=== PATIENT | female | born 1980 | race Caucasian/White ===

== ENCOUNTER 2018-11-04 02:24 | Observation (INO) ==
[2018-11-04] MEDS ORDERED: Famotidine 20 MG/2 ML VIAL IVP ONE (02:55)
[2018-11-04] MEDS ORDERED: *HR* FentaNYL (PF) 100 MCG/2 ML VIAL IVP ONE ×2 (02:55→04:50)
[2018-11-04] MEDS ORDERED: Ondansetron 4 MG/2 ML VIAL IVP ONE (02:55)
--- NOTE | 2018-11-04 02:59 | Emergency Department Note ---
Disposition Clinical Impression: Biliary colic Ovarian cyst Qualifiers: Laterality: right Qualified Code(s): N83.201 - Unspecified ovarian cyst, right side Abdominal pain Qualifiers: Abdominal location: generalized Qualified Code(s): R10.84 - Generalized abdominal pain Disposition: Admitted As Inpatient Condition: Fair Forms: ED Satisfaction Letter, Work/School Release Time of Disposition: 04:20 Abdominal Pain HPI - General Chief Complaint: ED Abdominal Pain Stated Complaint: "Severe Abd Pain/Nausea/Vomiting" Time Seen by Provider: 11/04/18 02:50 Source: patient, family Mode of arrival: ambulatory Limitations: no limitations Nursing Notes Reviewed: Yes Vital Signs Reviewed: Yes - History of Present Illness HPI Narrative: Centrally located abdominal pain since this evening. Pain radiates to her upper abdomen and to her back as well as her chest. Associated nausea and vomiting. She states she felt constipated over the past week and stool softeners were given (generic colace) without improvement. Patient reports having no appetite but she ate tortilla soup this evening. No other acute GI/ symptoms reported Pt Subjective Complaint: abdominal pain Onset (ago): hour(s) Consistency: constant Location: periumbilical Pain Severity: severe Pain Scale: 10 Quality: aching Radiation: epigastric, back, chest Associated symptoms: Reports: nausea, vomiting, constipation Treatments prior to arrival: OTC medications - Related Data Home Medications Medication Instructions Recorded Confirmed Sprintec 28 Day Tablet 10/31/15 Symbicort 80/4.5 03/02/17 Albuterol Inhaler 02/20/18 Zoloft 02/20/18 Previous Rx's Medication Instructions Recorded Ipratropium/Albuterol Neb [Duoneb] 3 ml IH Q6H PRN #30 vial.neb 02/20/18 predniSONE [PredniSONE] 20 mg PO DAILY 12 Days #5 tablet 05/02/18 PredniSONE [Deltasone] 20 mg PO DAILY #12 tablet 09/04/18 Tizanidine HCl 4 mg PO TID #15 tablet 09/04/18 predniSONE [PredniSONE] 0 mg PO DAILY #15 tablet 10/11/18 Allergies Allergy/AdvReac Type Severity Reaction Status Date / Time No Known Allergies Allergy Verified 10/11/18 20:53 All systems ED: reviewed and negative except as stated. Constitutional: Reports: as per HPI Eyes: Reports: as per HPI ENT ED: Reports: epistaxis Cardiovascular: Reports: chest pain Respiratory: Reports: as per HPI Gastrointestinal: Reports: abdominal pain, nausea, vomiting, constipation Genitourinary: Reports: as per HPI Musculoskeletal: Reports: back pain Integumentary: Reports: as per HPI Neurological: Reports: as per HPI Psychiatric: Reports: as per HPI Endocrine: Reports: as per HPI Hematological/Lymphatic: Reports: as per HPI Allergic/Immunologic: Reports: as per HPI Abdominal Pain PMH - Past Medical History Medical history: Reports: asthma Female Surgical History: Reports: Tonsillectomy Psychiatric history: Reports: no psych history - Social History Smoking status: Never smoker Alcohol use: Reports: none Drug use: Reports: none Physical Exam Uncomfortable appearing - General Limitations: no limitations General appearance: alert, in no apparent distress - Head Head exam: atraumatic - Eye Eye exam: Present: normal appearance - ENT ENT exam: normal exam - Neck Neck exam: Present: normal inspection, full ROM - Chest Chest inspection: Present: normal inspection, symmetric chest wall rise - Respiratory Respiratory exam: Present: normal lung sounds bilaterally - Cardiovascular Cardiovascular exam: Present: regular rate, normal rhythm, normal heart sounds - Abdominal Exam Abdominal exam: Present: soft, Non-Tender, normal bowel sounds. Absent: d istention, guarding, rebound Abdominal tenderness: Absent: RUQ, RLQ - Rectal Exam Rectal exam: Present: deferred - Extremities Exam Extremities exam: Present: normal inspection - Neurological Exam Neurological exam: Present: alert, oriented X3, CN II-XII intact - Psychiatric Psychiatric exam: Present: normal affect, normal mood - Skin Skin exam: Present: warm, dry, other (Splotchy erythematous rash to cheeks) Course Course Narrative: Patient presents with nausea and vomiting as well as centrally located abdominal pain. Her abdominal exam is benign. She does not have an acute surgical abdomen at the time of arrival. IV pain medications and antiemetics offered. I we will obtain labs, urinalysis, urine and obtain a CT scan abd and pelvis Vital Signs Temperature 98.3 F 11/04/18 02:34 Pulse Rate 89 11/04/18 02:34 Respiratory Rate 16 11/04/18 02:34 Blood Pressure 114/64 11/04/18 02:34 O2 Sat by Pulse Oximetry 98 11/04/18 02:34 Temperature 98.3 F 11/04/18 02:34 Pulse Rate 89 11/04/18 02:34 Respiratory Rate 16 11/04/18 02:34 Blood Pressure 114/64 11/04/18 02:34 O2 Sat by Pulse Oximetry 98 11/04/18 02:34 Oxygen Delivery Oxygen Delivery Room Air Abdominal Pain - Medical Records Medical records reviewed: Yes I reviewed the patient's medical records. - Lab Data Lab results reviewed: Yes I reviewed the patient's lab results. Result diagrams: 11/04/18 02:55 11/04/18 02:55 Lab Results 11/04/18 11/04/18 11/04/18 Range/Units 02:55 02:55 03:11 WBC 8.1 (4.3-11.1) K/mcL RBC 4.51 (3.82-4.97) M/mcL Hgb 13.4 (11.5-15.4) g/dL Hct 38.6 (35.3-44.9) % MCV 85.6 (83.0-100.0) fL MCH 29.7 (28.0-33.3) pg MCHC 34.7 (31.6-35.5) g/dL RDW 12.3 (11.5-14.5) % Plt Count 210 (140-400) K/mcL MPV 9.1 L (9.4-12.4) fL Immature Gran % 0.4 (0-4) % Seg Neutrophils % 78.0 % Lymphocytes % 13.8 % Monocytes % 7.2 % Eosinophils % 0.4 % Basophils % 0.2 % Neutrophils # 6.3 (1.6-8.9) K/mcL Lymphocytes # 1.1 (0.6-4.6) K/mcL Monocytes # 0.6 (0.0-1.3) K/mcL Eosinophils # 0.0 (0.0-0.6) K/mcL Basophils # 0.0 (0.0-0.2) K/mcL Sodium 136 (136-145) mEq/L Potassium 3.6 (3.5-5.1) mEq/L Chloride 103 (98-107) mEq/L Carbon Dioxide 23 (23-29) mEq/L BUN 9 (6-20) mg/dL Creatinine 0.53 L (0.60-1.20) mg/dL Est GFR ( Amer) > 60 (> 60) Est GFR (Non-Af Amer) > 60 (> 60) BUN/Creatinine Ratio 17 (6-26) Glucose 132 H (70-105) mg/dL Calculated Osmolality 283 (280-300) Calcium 9.4 (8.6-10.3) mg/dL Total Bilirubin 0.7 (0.3-1.0) mg/dL AST 15 (13-39) Units/L ALT 13 (7-52) Units/L Alkaline Phosphatase 47 (34-104) Units/L Serum Total Protein 6.6 (6.4-8.9) g/dL Albumin 4.0 (3.5-5.7) g/dL Globulin 2.6 (2.4-3.5) g/dL Albumin/Globulin Ratio 1.5 (1.1-2.2) Amylase 32 (29-103) Units/L Urine Color Yellow (Yellow) Urine Clarity Clear (Clear) Urine pH 7.5 (5.0-8.0) pH Units Ur Specific [place] 1.021 (1.010-1.025) Urine Protein Trace (Neg-Trace) mg/dL Urine Glucose (UA) Normal (Normal) mg/dL Urine Ketones 80 H (Negative) mg/dL Urine Blood Negative (Negative) Urine Nitrite Negative (Negative) Urine Bilirubin Negative (Negative) Urine Urobilinogen Normal (Normal) mg/dL Ur Leukocyte Esterase Moderate H (Negative) Urine Microscopic RBC 5-15 H (0-3) per hpf Urine Microscopic WBC 5-15 H (0-3) per hpf Ur Squamous Epith Cells Many H (None-Few) per lpf Urine Bacteria None Seen (None-Few) per hpf Hyaline Casts None Seen (None-Few) per lpf Urine Test (Negative) 11/04/18 Range/Units 03:11 WBC (4.3-11.1) K/mcL RBC (3.82-4.97) M/mcL Hgb (11.5-15.4) g/dL Hct (35.3-44.9) % MCV (83.0-100.0) fL MCH (28.0-33.3) pg MCHC (31.6-35.5) g/dL RDW (11.5-14.5) % Plt Count (140-400) K/mcL MPV (9.4-12.4) fL Immature Gran % (0-4) % Seg Neutrophils % % Lymphocytes % % Monocytes % % Eosinophils % % Basophils % % Neutrophils # (1.6-8.9) K/mcL Lymphocytes # (0.6-4.6) K/mcL Monocytes # (0.0-1.3) K/mcL Eosinophils # (0.0-0.6) K/mcL Basophils # (0.0-0.2) K/mcL Sodium (136-145) mEq/L Potassium (3.5-5.1) mEq/L Chloride (98-107) mEq/L Carbon Dioxide (23-29) mEq/L BUN (6-20) mg/dL Creatinine (0.60-1.20) mg/dL Est GFR ( Amer) (> 60) Est GFR (Non-Af Amer) (> 60) BUN/Creatinine Ratio (6-26) Glucose (70-105) mg/dL Calculated Osmolality (280-300) Calcium (8.6-10.3) mg/dL Total Bilirubin (0.3-1.0) mg/dL AST (13-39) Units/L ALT (7-52) Units/L Alkaline Phosphatase (34-104) Units/L Serum Total Protein (6.4-8.9) g/dL Albumin (3.5-5.7) g/dL Globulin (2.4-3.5) g/dL Albumin/Globulin Ratio (1.1-2.2) Amylase (29-103) Units/L Urine Color (Yellow) Urine Clarity (Clear) Urine pH (5.0-8.0) pH Units Ur Specific [place] (1.010-1.025) Urine Protein (Neg-Trace) mg/dL Urine Glucose (UA) (Normal) mg/dL Urine Ketones (Negative) mg/dL Urine Blood (Negative) Urine Nitrite (Negative) Urine Bilirubin (Negative) Urine Urobilinogen (Normal) mg/dL Ur Leukocyte Esterase (Negative) Urine Microscopic RBC (0-3) per hpf Urine Microscopic WBC (0-3) per hpf Ur Squamous Epith Cells (None-Few) per lpf Urine Bacteria (None-Few) per hpf Hyaline Casts (None-Few) per lpf Urine Test Negative (Negative) - Radiology Data Radiology results reviewed: Yes I reviewed the patient's radiology results.
[2018-11-04 03:27] LABS: Basophils % 0.2 %; Eosinophils % 0.4 %; Hematocrit 38.6 % (35.3-44.9); Hemoglobin 13.4 g/dL (11.5-15.4); Immature Granulocytes % 0.4 % (0-4); Lymphocytes # 1.1 K/mcL (0.6-4.6); Lymphocytes % 13.8 %; Mean Corpuscular HGB Conc 34.7 g/dL (31.6-35.5); Mean Corpuscular Hemoglobin 29.7 pg (28.0-33.3); Mean Corpuscular Volume 85.6 fL (83.0-100.0); Mean Platelet Volume 9.1 fL (9.4-12.4); Monocytes # 0.6 K/mcL (0.0-1.3); Monocytes % 7.2 %; Neutrophils # 6.3 K/mcL (1.6-8.9); Platelet Count 210 K/mcL (140-400); Red Blood Count 4.51 M/mcL (3.82-4.97); Red Cell Distribution Width 12.3 % (11.5-14.5)
[2018-11-04 03:31] LABS: Bilirubin,Urine Negative (Negative); Blood,Urine Negative (Negative); Clarity,Urine Clear (Clear); Color,Urine Yellow (Yellow); Glucose,Urine (UA) Normal (Normal); Ketones,Urine 80 mg/dL (Negative); Leukocyte Esterase,Urine Moderate (Negative); Nitrite,Urine Negative (Negative); PH,Urine 7.5 pH Units (5.0-8.0); Protein,Urine Trace mg/dL (Neg-Trace); Specific Gravity,Urine 1.021 (1.010-1.025); Urobilinogen,Urine Normal (Normal)
[2018-11-04 03:33] LABS: Bacteria,Urine None Seen per hpf (None-Few); Hyaline Casts,Urine None Seen per lpf (None-Few); Squamous Epithelial Cell,Urine Many per lpf (None-Few)
[2018-11-04] MEDS ORDERED: 0.9 % Sodium Chloride 1,000 ML IVC ONE (03:35)
[2018-11-04 03:47] LABS: Alanine Aminotransferase 13 Units/L (7-52); Albumin/Globulin Ratio 1.5 (1.1-2.2); Alkaline Phosphatase 47 Units/L (34-104); Amylase 32 Units/L (29-103); Aspartate Amino Transferase 15 Units/L (13-39); BUN/Creatinine Ratio 17 (6-26); Bilirubin,Total 0.7 mg/dL (0.3-1.0); Blood Urea Nitrogen 9 mg/dL (6-20); Calcium 9.4 mg/dL (8.6-10.3); Carbon Dioxide 23 mEq/L (23-29); Chloride 103 mEq/L (98-107); Globulin 2.6 g/dL (2.4-3.5); Glucose 132 mg/dL (70-105); Osmolality,Calculated 283 (280-300); Potassium 3.6 mEq/L (3.5-5.1); Sodium 136 mEq/L (136-145); Total Protein 6.6 g/dL (6.4-8.9); eGFR For Non-African Americans > 60 (> 60)
[2018-11-04] MEDS ORDERED: Piperacillin/Tazobactam 3.375 GM in 0.9 % Sodium Chloride Mini Bag 100 ML IVPB ONE (04:20)
[2018-11-04] MEDS: 0.9 % Sodium Chloride 1,000 ML IVC SCH (04:40)
[2018-11-04] MEDS ORDERED: OXYCODONE Oral CONC 10 MG/0.5 ML ORAL.SYG SL PRN ×2 (05:53→13:37)
[2018-11-04] MEDS ORDERED: Ondansetron ODT 4 MG TAB.RAPDIS SL PRN ×2 (05:54→18:59)
--- NOTE | 2018-11-04 08:26 | Anesthesia Evaluation PreOp ---
Date of Encounter: 11/04/18 Time of Encounter: 16:11 - Past History Planned Operation: ROBOTIC LAP CHOLECYSTECTOMY Cardiac History: Denies any Significant Hx Pulmonary History: Asthma [employer] History: Other (ANXIETY, DEPRESSION) Other Medical History: Denies Any Significant HX Anesthesia History: No Prior Anesthetic Complications, Past Anesthesia : No Test: Negative Alcohol Use: none Drug use: none Medications and Allergies Ascorbic Acid [Vitamin C] 1,000 mg PO DAILY 11/04/18 [History] Budesonide/Formoterol 80/4.5 [Symbicort 80/4.5] 1 puff IH BID 11/04/18 [History] Multivit-Min/Iron/Folic Acid/K [Adults Multivitamin Caplet] 1 each PO DAILY 11/04/18 [History] Norgestimate-Ethinyl Estradiol [Sprintec 28 Day Tablet] 1 each PO DAILY 11/04/18 [History] Sertraline [Zoloft] 50 mg PO DAILY 11/04/18 [History] Vitamin B Complex [B Complex] 1 each PO DAILY 11/04/18 [History] Allergy/AdvReac Type Severity Reaction Status Date / Time No Known Allergies Allergy Verified 10/11/18 20:53 - Meds/Allergy Pre-op Review Medications Reviewed: Yes (ZOSYN [id number]) Allergies Reviewed: No Anesthesia Results - Labs 11/04/18 02:55 11/04/18 02:55 Laboratory Tests 11/04/18 11/04/18 02:55 03:11 Calcium 9.4 Total Bilirubin 0.7 AST 15 ALT 13 Alkaline Phosphatase 47 Serum Total Protein 6.6 Albumin 4.0 Amylase 32 Urine Test Negative Anesthesia Exam O2 Sat Height 1.68 m Weight 61.235 kg O2 Sat by Pulse Oximetry 100 O2 Sat by Pulse Oximetry 99 O2 Sat by Pulse Oximetry 98 Vital Signs/O2 Sat/Glucose, Most Recent Temp Pulse Resp BP Pulse Ox 98.5 F 72 15 126/75 100 11/04/18 05:18 11/04/18 05:18 11/04/18 05:18 11/04/18 05:18 11/04/18 05:18 NPO (# of Hours): >8 - HEENT Mallampati: I Teeth: Normal Oral Opening: Greater than 3 - Cardiac Rhythm: Regular - Pulmonary Breath Sounds: bilateral Clear Respiratory Effort: Symmetrical Anesthesia Assess/Plan ASA Score: 2 Anesthetic Plan: General Monitoring Plan: Standard Monitors Recovery Plan: PACU
[2018-11-04] MEDS ORDERED: Piperacillin/Tazobactam 3.375 GM in 0.9 % Sodium Chloride Mini Bag 100 ML IVPB SCH (12:00)
--- NOTE | 2018-11-04 13:48 | General Surg History&Physical ---
Date of Encounter: 11/04/18 Time of Encounter: 13:46 Assessment and Plan (1) Biliary colic Current Visit: Yes Status: Acute 37F with biliary colic; NPO IVF abx plan for OR today The assessment and plan as outlined above was discussed with the patient and/or family members who expressed understanding and agreement. All questions were answered. History of Present Illness Chief complaint: abdominal pain HPI: Ms. Franco is a 37 year old female otherwise healthy who presents with one day history of worsening RUQ that was precipated after eating tortilla soup. The patient does not report a pain similar to this in the past. It is associated with nausea, vomiting, fevers, and chills. The pain does radiate to her back/shoulder. No identifiable alleviating or exacerbating factors. A CT scan was obtained which was evaluated by me in combination with radiology reads which showed pericholecystic fluid and gallstones. Past Med Surg Social Fam HX - Past Medical History Medical history: asthma Psychiatric history: no psych history - Past Surgical History Surgical History: no surgical history Additional surgical history: tonsillectomy - Social History Smoking Status: Never smoker Smokeless Tobacco Status: No Alcohol use: none Drug use: none - Family History Grandmother Hx Family Cardiac Disorders: Yes (Stroke) Medications and Allergies Ascorbic Acid [Vitamin C] 1,000 mg PO DAILY 11/04/18 [History] Budesonide/Formoterol 80/4.5 [Symbicort 80/4.5] 1 puff IH BID 11/04/18 [History] Multivit-Min/Iron/Folic Acid/K [Adults Multivitamin Caplet] 1 each PO DAILY 11/04/18 [History] Norgestimate-Ethinyl Estradiol [Sprintec 28 Day Tablet] 1 each PO DAILY 11/04/18 [History] Sertraline [Zoloft] 50 mg PO DAILY 11/04/18 [History] Vitamin B Complex [B Complex] 1 each PO DAILY 11/04/18 [History] Allergy/AdvReac Type Severity Reaction Status Date / Time No Known Allergies Allergy Verified 10/11/18 20:53 Review of Systems All systems PM: 12 point ROS negative besides HPI findings General Surgery Exam Initial Vital Signs Temp Pulse Resp BP Pulse Ox 98.3 F 89 16 114/64 98 11/04/18 02:34 11/04/18 02:34 11/04/18 02:34 11/04/18 02:34 11/04/18 02:34 - General physical appearance no distress - Eyes other (no scleral icterus), normal ocular movement - ENT normocephalic - Neck trachea midline, no lymphadectomy - Respiratory normal expansion, normal respiratory effort - Cardiovascular Cardiovascular exam: Present: RRR - Abdomen Abdomen general surgery: Present: soft, tender Abdominal Tenderness: Present: RUQ - Integumentary Integumentary general surgery: Present: warm and dry - Neurologic Present: CN 2-12 grossly intact - Musculoskeletal Present: normal posture - Psychiatric Psychiatric general surgery: Present: A&Ox3 Results - Labs 11/04/18 02:55 11/04/18 02:55 Abnormal lab results MPV 9.1 fL (9.4-12.4) L 11/04/18 02:55 Creatinine 0.53 mg/dL (0.60-1.20) L 11/04/18 02:55 Glucose 132 mg/dL (70-105) H 11/04/18 02:55 Urine Ketones 80 mg/dL (Negative) H 11/04/18 03:11 Ur Leukocyte Esterase Moderate (Negative) H 11/04/18 03:11 Urine Microscopic RBC 5-15 per hpf (0-3) H 11/04/18 03:11 Urine Microscopic WBC 5-15 per hpf (0-3) H 11/04/18 03:11 Ur Squamous Epith Cells Many per lpf (None-Few) H 11/04/18 03:11 Diabetes panel 11/04/18 Range/Units 02:55 Sodium 136 (136-145) mEq/L Potassium 3.6 (3.5-5.1) mEq/L Chloride 103 (98-107) mEq/L Carbon Dioxide 23 (23-29) mEq/L BUN 9 (6-20) mg/dL Creatinine 0.53 L (0.60-1.20) mg/dL Glucose 132 H (70-105) mg/dL Calcium 9.4 (8.6-10.3) mg/dL AST 15 (13-39) Units/L ALT 13 (7-52) Units/L Alkaline Phosphatase 47 (34-104) Units/L Albumin 4.0 (3.5-5.7) g/dL Calcium panel 11/04/18 Range/Units 02:55 Calcium 9.4 (8.6-10.3) mg/dL Albumin 4.0 (3.5-5.7) g/dL Pituitary panel 11/04/18 Range/Units 02:55 Sodium 136 (136-145) mEq/L Potassium 3.6 (3.5-5.1) mEq/L Chloride 103 (98-107) mEq/L Carbon Dioxide 23 (23-29) mEq/L BUN 9 (6-20) mg/dL Creatinine 0.53 L (0.60-1.20) mg/dL Glucose 132 H (70-105) mg/dL Calcium 9.4 (8.6-10.3) mg/dL Adrenal panel 11/04/18 Range/Units 02:55 Sodium 136 (136-145) mEq/L Potassium 3.6 (3.5-5.1) mEq/L Chloride 103 (98-107) mEq/L Carbon Dioxide 23 (23-29) mEq/L BUN 9 (6-20) mg/dL Creatinine 0.53 L (0.60-1.20) mg/dL Glucose 132 H (70-105) mg/dL Calcium 9.4 (8.6-10.3) mg/dL Total Bilirubin 0.7 (0.3-1.0) mg/dL AST 15 (13-39) Units/L ALT 13 (7-52) Units/L Alkaline Phosphatase 47 (34-104) Units/L Albumin 4.0 (3.5-5.7) g/dL All other labs normal. - Imaging US - abdomen: report reviewed, image reviewed
[2018-11-04] MEDS ORDERED: *HR* FentaNYL (PF) 100 MCG/2 ML VIAL ONE (15:21)
[2018-11-04] MEDS ORDERED: *HR* Propofol 200 MG/20 ML VIAL IVP ONE (15:22)
[2018-11-04] MEDS ORDERED: *HR* Succinylcholine 200 MG/10 ML VIAL IVP ONE (15:22)
[2018-11-04] MEDS ORDERED: *HR* Rocuronium Bromide 50 MG/5 ML VIAL ONE (15:22)
[2018-11-04] MEDS ORDERED: Ondansetron 4 MG/2 ML VIAL ONE (15:22)
[2018-11-04] MEDS ORDERED: Lidocaine -MPF 2% 2 ML VIAL ONE (15:22)
[2018-11-04] MEDS ORDERED: Dexamethasone 4 MG/ML VIAL ONE (15:22)
[2018-11-04] MEDS ORDERED: *HR* PHENYLEPHRINE 1,000 MCG/10 ML SYRINGE IVP ONE (15:24)
[2018-11-04] MEDS ORDERED: Ringers Solution, Lactated 1,000 ML IVC SCH (15:55)
[2018-11-04] MEDS ORDERED: Isovue-300 50 ML VIAL ONE (16:18)
[2018-11-04] MEDS ORDERED: *HR* Morphine 10 MG/ML VIAL ONE (16:38)
[2018-11-04] MEDS ORDERED: Acetaminophen IV 1,000 MG/100 ML INFUS..BTL IVPB ONE (17:07)
[2018-11-04] MEDS ORDERED: *HR* Promethazine 25 MG/ML VIAL IVP PRN (17:07)
[2018-11-04] MEDS ORDERED: *HR* Meperidine 25 MG/ML SYRINGE IVP PRN (17:07)
[2018-11-04] MEDS ORDERED: Dexamethasone 4 MG/ML VIAL IVP ONE (17:07)
[2018-11-04] MEDS ORDERED: Albuterol 2.5 MG/3 ML NEBULIZER IH ONE (17:07)
[2018-11-04] MEDS ORDERED: *HR* OxyCODONE Immed Rel 5 MG TABLET PO PRN (17:07)
[2018-11-04] MEDS ORDERED: *HR* HYDROmorphone (PF) 1 MG/ML SYRINGE IVP PRN (17:07)
[2018-11-04] MEDS ORDERED: Ketorolac 30 MG/ML VIAL ONE (17:32)
--- NOTE | 2018-11-04 18:02 | Operative Note ---
Date of procedure: 11/04/18 Pre-op diagnosis: symptomatic cholelithiasis Post-op diagnosis: same (acute cholecystitis) Procedure: robotic cholecystectomy with intraoperative cholangiogram Implants: none Complications: none Anesthesia: GETA Local Anesthetics: 0.5% Sensorcaine HCL SubQ (cc) Surgeon: Vito Gleason Was there an grants and contracts assistant present: Yes Machine Cloth Examiner: Maria Del Rosario Sotelo Estimated blood loss (cc): 10 Specimen: gallbladder and contents Condition: stable Disposition: PACU Procedure in Detail: The patient was brought into the operating room suite and was placed in the supine position. Mechanical DVT prophylaxis was applied. A time-in was conducted. The patient underwent smooth induction of anesthesia. Preoperative antibiotics were given. The patient was prepped and draped in the usual fashion. A time-out was held identifying the correct patient, pathology, and procedure. Everyone was in agreement and we began the procedure. Incision to Dissection I started by creating a 12mm supraumbilical incision. Via open Simeon technique I did enter into the abdomen. I inserted the 12mm trocar followed by the 30 degree camera, ensured that I did not cause intraabdominal injury upon entry, and quickly identified the gallbladder. It was obviously inflammed. I created a 5mm incisions one handbreadth to the left and right of the umbilical incision and an grants and contracts assistant port along the R anterior axillary line. I then docked the robot in the usual fashion. Using laparoscopic graspers I managed to elevate the gallbladder above the liver. At the Console I grasp the edge of the gallbladder to retract laterally. Prior to doing so I had to decompress the gallbladder. There was immediate expulsion of bile. I then used the [place] instrument as well as the hook-electrocautery, I dissected out the cystic duct and the cystic artery. I excised the posterior tissue to visualize the liver. I was able to clearly visualize the critical view of safety. I then performed a transcystic cholangiogram using the Lira instrument. There was flow into the duodenum, clear visualization of the common bile duct and the proximal ductal system after putting the patient in trendelenberg. I then concluded this portion of the procedure and went back to the console. Critical view of Safety to Excison of the gallbladder I then clipped both structures using plastic clips, two on the stay side, one on the specimen side. Using robotic scissors, I cut between the clip on the specimen side and the first clip on the stay side. Then using tension and counter-tension, I used the electrocautery to excise the gallbladder off of the liver bed. Before complete excision, I evaluated the liver bed to ensure there 1.) there was no bleeding, 2. No excessive bile leakage, and 3.) to evaluate my clips. There was no bleeding, bile leakage, and the clips were all the way across both duct and artery. Removal of gallbladder to Closure After undocking the robot, I inserted the endocatch bag into the umbilical port. I placed the specimen into the bag and retrieved it through the umbilical port. i then irrgiated the liver bed and above the liver before suctioning both irrigation fluid and air. I removed the 5mm ports, turned off the insufllation, then removed the 12mm umbilical port. I then close the umbilical fascia a vicryl suture in a figure of 8 fashion. All incisions were closed with interrupted 4-0 monocryl and sealed with dermabond. The patient tolerated the procedure well and went back to PACU in stable condition.
--- NOTE | 2018-11-04 18:49 | Anesthesia Evaluation Post Op ---
Date of Encounter: 11/04/18 Time of Encounter: 18:41 - Discharge PostOp Status: Transfer Patient to floor (Patient's vital signs have been reviewed. Patient is stable postoperatively and has adequately recovered from anesthesia. Patient is determined to have stable airway patency and respiratory function including respiratory rate and oxygen saturation. Patient has a stable heart rate, blood pressure and adequate hydration. Patients mental status is acceptable. Patients temperature is appropriate. Pain and nausea are adequately controlled.)
[2018-11-04] MEDS ORDERED: 0.9 % Sodium Chloride 1,000 ML IVC SCH (18:59)
[2018-11-04] MEDS: Piperacillin/Tazobactam 3.375 GM in 0.9 % Sodium Chloride Mini Bag 100 ML IVPB SCH (19:53)
[2018-11-05] MEDS: OXYCODONE Oral CONC 10 MG/0.5 ML ORAL.SYG SL PRN ×2 (00:14→12:02)
[2018-11-05] MEDS: Piperacillin/Tazobactam 3.375 GM in 0.9 % Sodium Chloride Mini Bag 100 ML IVPB SCH ×2 (02:54→12:02)
[2018-11-05] MEDS: 0.9 % Sodium Chloride 1,000 ML IVC SCH (10:43)
[2018-11-05 11:54] VITALS: BP 110/71
--- NOTE | 2018-11-05 12:52 | Discharge Summary ---
Orders not resulted at time of discharge: Pending orders 11/04/18 17:54 Surgical Pathology [PTH] Routine Date of Encounter: 11/05/18 Time of Encounter: 12:52 - Discharge Diagnosis (1) Acute cholecystitis due to biliary calculus Priority: Primary Status: Acute Comments: 37F POD #1 s/p robotic cholecystectomy with IOC; currently meets discharge criteria (tolerating diet, voiding on her own, pain controlled) d/c abx d/c IVF reg diet okay for discharge today General Surgery Exam Initial Vital Signs Temp Pulse Resp BP Pulse Ox 98.3 F 89 16 114/64 98 11/04/18 02:34 11/04/18 02:34 11/04/18 02:34 11/04/18 02:34 11/04/18 02:34 - General physical appearance no distress - Eyes other (no scleral icterus), normal ocular movement - ENT normocephalic - Neck trachea midline, no lymphadectomy - Respiratory normal expansion, normal respiratory effort - Cardiovascular Cardiovascular exam: Present: RRR - Abdomen Abdomen general surgery: Present: tender (appropriately tender along incision) - Incision Incision: Present: clean and dry, intact - Integumentary Integumentary general surgery: Present: warm and dry, no abnormal pigmentation - Neurologic Present: CN 2-12 grossly intact - Musculoskeletal Present: normal posture - Psychiatric Psychiatric general surgery: Present: A&Ox3 - Hospital Course Hospital course: Ms. Franco is a 37 year old female - Time Spent with Patient Total time spent providing and/or coordinating discharge services: - Discharge Medications Prescriptions: OxyCODONE Immed Rel [Roxicodone 5 MG] 5 mg PO Q6HR PRN 7 Days #28 tablet PRN Reason: Pain Home Medications: Ascorbic Acid [Vitamin C] 1,000 mg PO DAILY 11/04/18 [History] Budesonide/Formoterol 80/4.5 [Symbicort 80/4.5] 1 puff IH BID 11/04/18 [History] Multivit-Min/Iron/Folic Acid/K [Adults Multivitamin Caplet] 1 each PO DAILY [History] Norgestimate-Ethinyl Estradiol [Sprintec 28 Day Tablet] 1 each PO DAILY 11/04/18 [History] Sertraline [Zoloft] 50 mg PO DAILY 11/04/18 [History] Vitamin B Complex [B Complex] 1 each PO DAILY 11/04/18 [History] OxyCODONE Immed Rel [Roxicodone 5 MG] 5 mg PO Q6HR PRN 7 Days #28 tablet 11/05/18 [Rx] Allergies/Adverse Reactions: Allergy/AdvReac Type Severity Reaction Status Date / Time No Known Allergies Allergy Verified 10/11/18 20:53 Date of admission: 11/04/18 04:37 Primary care physician: Meghna Fong, [facility] Discharging clinician: Vito Gleason Anticipated date of discharge: 11/05/18 Labs on day of discharge: Labs from last 24 hours 11/04/18 11:25 POC Glucose 88 - Impressions ITS Impressions Abdomen/Pelvis CT 11/04/18 02:55 IMPRESSION: 1. The gallbladder is distended with multiple large calculi and gallbladder wall thickening. Findings are concerning for acute or chronic cholecystitis. Recommend right upper quadrant ultrasound. 2. Right adnexal cystic lesion is seen with a septation. Please see recommendations below. RECOMMENDATIONS: 4.5 cm indeterminate ovarian cyst Recommend prompt follow-up with pelvic US. Reference: J Am Felicitas Radiol 2013;10:[id number] D/ / 11/04/2018 08:45:41 Roxane Bauman MD / erin Interpreting Provider: Roxane Bauman MD Abdomen Ultrasound 11/04/18 11:00 IMPRESSION: Cholelithiasis and gallbladder wall thickening. Findings may be on the basis of acute versus chronic cholecystitis. D/ / 11/04/2018 13:13:14 Mendez Mcgowan MD / erin Interpreting Provider: Mendez Mcgowan MD Cholangiogram,Operative 11/04/18 17:00 IMPRESSION: See findings above. D/ / Ag Rizzo / Ag Rizzo Interpreting Provider: Ag Rizzo - Patient Status Disposition: Home, Self-Care Condition: Fair Overall status at discharge: patient is progressing back to baseline - Discharge Instructions Follow Up With: Meghna Fong CNP [Primary Care Provider] - Berkley Grossman CNP [Advanced Practice Nurse] - (follow up with [employer] in two weeks) - Diet and Activity Activity: increase activity as tolerated Diet: advance to your usual diet
== END 2018-11-05 15:50 | disposition home or self-care (01) ==
LOC: 3ANU 02:24 → EMEROOARM 02:24 → 3ANU 05:07
PROVIDERS: ADMIT Surgery; ATTEND Surgery